=== PATIENT | female | born 1980 | race African-American/Black ===

== ENCOUNTER 2019-02-25 12:31 | Emergency (ER) | payer BC ==
[~2019-02-25] VITALS: Ht 167.6 cm; Wt 78.2 kg
[2019-02-25] MEDS ORDERED: LORazepam 0.5 MG TABLET PO ONE (13:15)
--- NOTE | 2019-02-25 13:30 | PHYS DOC ---
Past Medical History Past Medical History: Anxiety Past Surgical History: Other Additional Past Surgical Histo: dilation and curretage Alcohol Use: Occasionally Drug Use: None Adult General Chief Complaint Chief Complaint: ANXIETY/PANIC ATTACK HPI HPI Patient is a 38-year-old female who presents to the emergency department for evaluation. She states that she has been under a lot of stress from work, due to short staffing, and her current managerial workload. She states that she began experiencing stress and anxiety, as well as paresthesias and some hyperventila tion. She was concerned that she might be having a stroke, but is not otherwise having any neurological deficit. She denies any headache, or vision changes. She has not had any fevers or chills, and denies any chest pain. There are no alleviating or exacerbating factors to her symptoms otherwise. She states that she used to have panic attacks when she was younger, but has not had a lot of panic attacks and her adult life, although she has not been under a similar amount of stress in the past. Review of Systems Review of Systems Constitutional: Denies fever or chills [] Eyes: Denies change in visual acuity, redness, or eye pain [] HENT: Denies nasal congestion or sore throat [] Respiratory: Denies cough or current shortness of breath [] Cardiovascular: The patient denies any shortness of breath, chest pain, palpitations, or orthopnea [] GI: Denies abdominal pain, nausea, vomiting, bloody stools or diarrhea [] : Denies dysuria or hematuria [] Musculoskeletal: Denies back pain or joint pain [] Integument: Denies rash or skin lesions [] Neurologic: Denies headache, focal weakness or current sensory changes [] Endocrine: Denies polyuria or polydipsia [] Psychiatric: Denies suicidal or homicidal thoughts, or hallucinations. All other systems were reviewed and found to be within normal limits, except as documented in this note. Current Medications Current Medications Current Medications Medications (Trade) Dose Ordered Sig/Manish Start Time Stop Time Status Last Admin Dose Admin Lorazepam (Ativan) 1 mg 1X ONCE 02/25/19 13:15 02/25/19 13:45 DC Allergies Allergies Allergies Coded Allergies Type Severity Reaction Last Updated Verified No Known Drug Allergies 02/25/19 No Physical Exam Physical Exam PHYSICAL EXAM: CONSTITUTIONAL: Well developed, well nourished HEAD: normocephalic, atraumatic EENT: PERRL, EOMI. Conjunctivae normal color, sclerae non-icteric; moist mucous membranes. NECK: Supple, non-tender; no meningismus. LUNGS: Lungs CTA, breathing even and unlabored. Normal air movement. HEART: Regular rate and rhythm, no murmur CHEST: No deformity; non-tender ABDOMEN: The abdomen is soft, and non-tender, no masses or bruits. EXTREM: Normal ROM; no deformity, no calf tenderness. Normal pulses palpable in all extremities. There is no pedal edema. SKIN: No rash; no diaphoresis NEURO: Alert; normal speech and cognition; CN's grossly intact; strength grossly intact without focal deficit. Sensation is grossly intact and symmetrical in all extremities. Whvtdp-[id number] and heel hess testing is normal. Visual gonzalez are intact by confrontation. BACK: No CVA TTP. Current Patient Data Vital Signs Vital Signs Date Time Temp Pulse Resp B/P (MAP) Pulse Ox O2 Delivery O2 Flow Rate FiO2 02/25/19 12:35 98.4 73 20 179/94 (122) 100 Room Air 98.4 Lab Values Laboratory Tests Test 02/25/19 12:50 02/25/19 13:50 Glucose (Fingerstick) 67 mg/dL (70-99) L 91 mg/dL (70-99) EKG EKG [Normal sinus rhythm with a normal rate, normal axis, normal intervals, there are no acute ischemic ST/T changes.] Radiology/Procedures Radiology/Procedures [] Course & Med Decision Making Course & Med Decision Making 2:00 PM: The patient's condition remains stable. She is feeling somewhat better at this time. I discussed importance of close follow-up, and return precautions in detail. I discussed importance of establishing care with a therapist for further evaluation and treatment of her anxiety. Dragon Disclaimer Dragon Disclaimer This electronic medical record was generated, in whole or in part, using a voice recognition dictation system. Departure Departure Impression: Primary Impression: Anxiety Disposition: HOME, SELF-CARE Condition: STABLE Referrals: UNKNOWN PCP NAME (PCP) Patient Instructions: Anxiety and Panic Attacks Additional Instructions: Follow-up with the [facility], call [phone] to schedule an outpatient follow-up appointment for further management of your anxiety. Follow-up with your primary care provider for further evaluation. Return to medical care for any new or worsening symptoms. LANCE RIVAS MD Feb 25, 2019 13:30
--- NOTE | 2019-02-25 13:36 | EKG ---
[facility] [address] [place] [address] Test Date: 2019-02-25 Test Time: 13:00:06 Pat Name: LUCERO JEFFERY Department: Room: Gender: F Project Scheduler: : 1980 Requested By: LANCE RIVAS Order Number: [id number] Reading MD: Measurements Intervals [place] Rate: 59 P: 54 AR: 154 QRS: 47 QRSD: 80 T: 9 QT: 402 QTc: 402 Interpretive Statements SINUS RHYTHM NORMAL ECG No previous ECG available for comparison
[2019-02-25 14:20] VITALS: BP 139/84
== END 2019-02-25 14:25 | disposition home or self-care (01) ==
LOC: ER 12:31
DX: F41.9 Anxiety disorder, unspecified (principal)
CPT/HCPCS: 82962; 93005; 99285